=== PATIENT | male | born 1990 | race Hispanic/Latino ===

== ENCOUNTER 2018-03-06 22:35 | Emergency (ER) | payer OTHER ==
[2018-03-06 22:46] VITALS: BP 152/81; PULSE 93; RESP 16; TEMP 98.2; O2SAT 98
--- NOTE | 2018-03-06 22:52 | ED PDOC ---
Upper Extremity Pain/Injury Time Seen by Provider: 03/06/18 22:50 Chief Complaint (Nursing): Finger,Hand,&Wrist Chief Complaint (Provider): hand injury History Per: Patient (27 y/o male here after punching wall at home. States he was planning on renovating home and punched wall to be funny. Did not take any medication prior. Has h/o old fracture in hand incidentally noted in past . States he self reduced "something that popped" in his hand today.) Past Medical History Reviewed: Historical Data, Nursing Documentation, Vital Signs Vital Signs: Last Vital Signs Temp 98.2 F 03/06/18 22:44 Pulse 93 H 03/06/18 22:44 Resp 16 03/06/18 22:44 BP 152/81 H 03/06/18 22:44 Pulse Ox 98 03/06/18 22:44 - Family History Family History: States: No Known Family Hx - Home Medications Home Medications: Ambulatory Orders Medication Instructions Recorded Naproxen 375 mg PO Q8 PRN #21 tablet 03/06/18 - Allergies Allergies/Adverse Reactions: Allergies Allergy/AdvReac Type Severity Reaction Status Date / Time soy Allergy ANGIOEDEMA Verified 03/06/18 22:44 Review of Systems ROS Statement: Except As Marked, All Systems Reviewed And Found Negative Physical Exam - Reviewed Nursing Documentation Reviewed: Yes Vital Signs Reviewed: Yes - Physical Exam Appears: Positive for: Well, Non-toxic, No Acute Distress Head Exam: Positive for: ATRAUMATIC, NORMAL INSPECTION, NORMOCEPHALIC Skin: Positive for: Normal Color, Warm, DRY Eye Exam: Positive for: EOMI, Normal appearance, PERRL ENT: Positive for: Normal ENT Inspection Neck: Positive for: Normal, Painless ROM Cardiovascular/Chest: Positive for: Regular Rate, Rhythm Respiratory: Positive for: CNT, Normal Breath Sounds Gastrointestinal/Abdominal: Positive for: Normal Exam, Soft Back: Positive for: Normal Inspection Extremity: Positive for: Normal ROM, Swelling (left hand swelling dorsum of hand radial aspect.) Neurologic/Psych: Positive for: Alert, Oriented - ECG O2 Sat by Pulse Oximetry: 98 - Progress ED Course And Treament: PLACED IN VOLAR SPLINT. MOTRIN 600MG X 1 DOSE Disposition - Clinical Impression Clinical Impression: Metacarpal bone fracture, Carpal bone fracture - Patient ED Disposition Is Patient to be Admitted: No - Disposition Referrals: Phyllis Silverman MD [Staff Provider] - Disposition: Routine/Home Disposition Time: 23:28 Condition: FAIR Prescriptions: Naproxen 375 mg PO Q8 PRN #21 tablet PRN Reason: Pain, Moderate (4-7) Instructions: Hand Fracture (DC), Wrist Fracture (DC)
--- NOTE | 2018-03-07 10:57 | RAD ---
PROCEDURE: Left Hand Radiographs. HISTORY: hand injury COMPARISON: None. FINDINGS: BONES: Acute mildly displaced fracture involving the plantar of the 2nd metacarpal on the ulnar aspect. The displaced fragment is elongated and measures approximately 9 millimeters. Additional avulsion fracture of the hamate. The avulsed fragment is approximately 4 millimeters. JOINTS: Normal. No osteoarthritic changes. SOFT TISSUES: Soft tissue swelling. OTHER FINDINGS: None. IMPRESSION: Acute fractures involving the head of the 2nd metacarpal and hamate.
== END 2018-03-06 23:29 | disposition home or self-care (01) ==
LOC: H.ER 22:35
DX: S62.306A Unspecified fracture of fifth metacarpal bone, right hand, initial encounter for closed fracture (principal); S62.102A Fracture of unspecified carpal bone, left wrist, initial encounter for closed fracture; W22.8XXA Striking against or struck by other objects, initial encounter; Y92.89 Other specified places as the place of occurrence of the external cause